=== PATIENT | female | born 2000 | race Caucasian/White ===

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

== ENCOUNTER 2021-10-30 16:33 | Emergency (ER) | payer OTHER ==
[~2021-10-30 16:33] MED LIST: KEFLEX500 MG PO; MOTRIN600 MG PO
== END 2021-10-30 17:40 | disposition left against medical advice (07) ==
LOC: FER 16:33
DX: O46.90 Antepartum hemorrhage, unspecified, unspecified trimester (principal); Z53.29 Procedure and treatment not carried out because of patient's decision for other reasons
CPT/HCPCS: 99281

== ENCOUNTER 2021-12-09 13:55 | Emergency (ER) | payer OTHER | END 2021-12-09 14:41 | disposition left against medical advice (07) | LOC: FER 13:55 | DX: Z53.21 Procedure and treatment not carried out due to patient leaving prior to being seen by health care provider (principal) ==